=== PATIENT | female | born 2000 | race Caucasian/White ===

== ENCOUNTER 2023-06-30 21:40 | Inpatient (IN) ==
[2023-06-30 22:32] LABS: Appearance Urine Clear (Clear); Bacteria Urine Automated Negative (Negative); Bilirubin Urine Negative (Negative); Blood Urine Negative (Negative); Color Urine Yellow; Epithelial Cell Urine Auto >30 /lpf (0-5); Glucose Urine UA Negative (Negative); Ketones Urine Negative (Negative); Leukocyte Esterase Urine Trace (Negative); Nitrite Urine Negative (Negative); Protein Urine Negative (Negative); RBC Urine Automated 0-4 /hpf (0-4); Specific Gravity Urine 1.007 (1.000-1.030); Urobilinogen Urine Negative (Negative); pH Urine 6.5 (4.5-7.5)
[2023-06-30 22:39] LABS: Pregnancy Test, Serum Negative (Negative)
[2023-06-30 22:40] LABS: Acetaminophen < 3 ug/ml (10-30); Albumin Globulin Ratio 1.5 (0.9-2); Albumin Level 4.6 gm/dl (3.4-5.0); BUN Creatinine Ratio 11.1 (10-20); Bilirubin,Total 0.3 mg/dl (0.2-1.0); Calcium 9.1 mg/dl (8.6-10.3); Creatinine Clr Calc Pharmacy 116.7 ml/min; Est GFR (African American) 139.7 ml/min; Est GFR (Non-African American) 120.6 ml/min; Globulin 3.1 gm/dl (2.5-4.0); Potassium 3.5 mmol/L (3.5-5.1); Salicylate < 3.0 mg/dl (3.0-30); Total Protein 7.7 gm/dl (6.0-8.3)
[2023-06-30 22:44] LABS: Hematocrit (blood only) 39.2 % (37.0-47.0); Hemoglobin 13.4 g/dl (12.0-16.0); Mean Corpuscular Hgb Conc 34.2 g/dL (32.0-36.0); Mean Corpuscular Volume 87.9 fL (80.0-100.0); RDW Coefficient of Variation 13.2 % (11.5-14.5); RDW Standard Deviation 42.8 fL (36.4-46.3); Red Blood Count 4.46 M/uL (4.20-5.40); White Blood Count 7.08 K/ul (4.8-10.8)
[2023-06-30 22:50] LABS: Basophils # (auto) 0.03 K/uL (0.00-0.20); Basophils % (auto) 0.4 %; Eosinophils # (auto) 0.13 K/uL (0.00-0.50); Eosinophils % (auto) 1.8 %; Immature Granulocytes # (auto) 0.02 K/uL (0.01-0.20); Immature Granulocytes % (auto) 0.3 %; Lymphocytes # (auto) 2.49 K/uL (1.20-3.40); Lymphocytes % (auto) 35.2 %; Mean Platelet Volume 10.2 fL (9.4-12.4); Monocytes # (auto) 0.74 K/uL (0.11-0.59); Monocytes % (auto) 10.5 %; Neutrophils # (auto) 3.67 K/uL (1.40-6.50); Neutrophils % (auto) 51.8 %; Platelet Count 274 K/uL (130-400)
[2023-06-30 22:55] LABS: Amphetamines+Metham, Urine Neg (Neg); Barbiturates, Urine Neg (Neg); Benzodiazepine, Urine Neg (Neg); Cocaine, Urine Neg (Neg); MDMA (Ecstacy), Urine Neg (Neg); Marijuana, Urine Neg (Neg); Methadone, Urine Neg (Neg); Opiate, Urine Neg (Neg); Phencyclidine, Urine Neg (Neg)
[2023-06-30 22:58] LABS: Thyroid Stimulating Hormone 4.43 uIu/ml (0.300-4.500)
--- NOTE | 2023-06-30 23:12 | Emergency Department Note ---
History of Present Illness General Chief complaint: Mental Health Evaluation Time Seen by Provider: 06/30/23 21:52 Source: patient, family (Multiple family members who are at the bedside), RN notes reviewed and old records reviewed (A neurology clinic visit from 05-19-2021 where she was seen for headaches) Mode of arrival: ambulatory Limitations: no limitations History of Present Illness This patient is a 22-year-old female who comes in after having thoughts of hurting herself. She says that she has had bipolar and has had a issues for the last 2 years after a friend committed suicide. She said it is gotten worse today where she thought about hurting herself she was going to take one of her stepfather's guns. She locked herself in a door her sister had called for help. She did admit to drinking alcohol and had several drinks today. She also smoked 1 puff of marijuana denies that she tried to overdose on anything or took aspirin or Tylenol. She has been adjusting her medications over the last 2 years and has not found the right mix that she thinks. She is currently taking Seroquel fluoxetine and hydroxyzine. She has cut and burned herself in the past as attempts to hurt herself. Denies any physical complaints. No homicidal ideations. Home Medications Medication Instructions Recorded Confirmed Type albuterol sulfate 90 mcg/actuation 1 inh inhalation QID PRN sob 01/30/23 02/13/23 History aerosol inhaler fluoxetine 10 mg tablet 10 mg PO QAM 01/30/23 02/13/23 History lamotrigine 50 mg tablet,extended 50 mg PO QAM 01/30/23 02/13/23 History release 24 hr pantoprazole 20 mg tablet,delayed 20 mg PO QAM 01/30/23 02/13/23 History release L norgest/E estradiol-E estrad 1 tab PO DAILY #182 ea 03/05/23 Rx 0.15 mg-30 mcg (84)/10 mcg(7) tabs,3mos (Seasonique) sumatriptan succinate 50 mg tablet See Rx Instructions PO .COMPLEX #9 03/05/23 Rx tabs Allergies Allergy/AdvReac Type Severity Reaction Status Date / Time No Known Allergies Allergy Verified 02/13/23 08:35 Past Med/Surg History Medical History Bladder endometriosis Constipation dx with "extended colon" GERD (gastroesophageal reflux disease) History of anemia Bipolar disorder ADD (attention deficit disorder) PTSD (post-traumatic stress disorder) Migraine Anxiety and depression Asthma used rescue inhaler last sunday Surgical History H/O shoulder surgery rt History of tonsillectomy and adenoidectomy Family History Family/Other Colorectal cancer Ovarian cancer Grandfather (Maternal) Myocardial infarction Grandmother (Maternal) Myocardial infarction Family/Other Ovarian cancer Denies family history of Prostate cancer Breast cancer Social History Smoking Status: Never smoker Tobacco Type: E-cigarettes / Vaping Cigarettes Per Day: vaping daily>advised; Second Hand Exposure: Yes (mother smokes); Hx Alcohol Use: No Preferred Language: Amharic Humidifier Attendant Required: No Beliefs That Will Affect Care: None marital status: Single Current Living Situation: Family current occupational status: student Feels Safe at Home: Yes Gender Identity: Female Assistive Devices: Contacts and Glasses Review of Systems A total of 10 systems reviewed and were otherwise negative Physical Exam Vital Signs Vital Signs - 24 hr 06/30/23 21:40 06/30/23 23:45 Temperature 37.1 C Temperature Source Oral Pulse Rate 122 H Pulse Rate [Finger] 91 H Respiratory Rate 22 18 Blood Pressure 145/102 H Blood Pressure [Right Arm] 123/71 Blood Pressure Mean 116 Blood Pressure Mean [Right Arm] 88 Pulse Oximetry 97 99 Oxygen Delivery Method Room Air Room Air Sepsis Recent Fever Within 48 Hours No Sepsis New/Unexplained Change in Mental Status No Sepsis Action Taken by Nursing No Action Required General: Well developed well nourished young female who is teary-eyed but answers questions appropriately and otherwise appear in no acute distress, breathing comfortably on room air. Normal speech HEENT: Normal cephalic atraumatic. Pupils are equal round and reactive to light. Extraocular movements are intact. Oropharynx is pink with moist mucous membranes. No swelling of the mouth lips or tongue. Neck: Supple with a midline trachea. No meningeal signs or stiffness, no JVD or bruits. No Stridor. Chest: Clear to auscultation bilaterally. No wheezes or rhonchi. No increased work of breathing. Heart: Regular rate and rhythm without murmurs or gallops. Abdomen: Soft nontender, nondistended without rebound guarding or rigidity. Extremities: No cyanosis clubbing or edema. No calf tenderness or assymetry Spine/Back. Non tender to palpation. No CVA tenderness Skin: Good turgor without rashes. Neurologic exam: Cranial nerves two through 12 are intact. Motor and sensation are intact and symmetrical throughout. Psych: Teary-eyed and admits to having suicidal ideations. Medical Decision Making Differential Diagnosis Depression, anxiety, toxicologic or metabolic, suicidal ideations. Medical Records Attestation: I reviewed the patient's medical records. Home Medications Current Medication List: was personally reviewed by me Laboratory Data Attestation: I reviewed the patient's lab results. 06/30/23 22:06 06/30/23 22:06 Lab Results 06/30/23 06/30/23 Range/Units 22:06 22:08 WBC 7.08 (4.8-10.8) K/ul RBC 4.46 (4.20-5.40) M/uL Hgb 13.4 (12.0-16.0) g/dl Hct 39.2 (37.0-47.0) % MCV 87.9 (80.0-100.0) fL MCH 30.0 (25.0-34.0) pg MCHC 34.2 (32.0-36.0) g/dL RDW Std Deviation 42.8 (36.4-46.3) fL RDW Coeff of Lesli 13.2 (11.5-14.5) % Plt Count 274 (130-400) K/uL MPV 10.2 (9.4-12.4) fL Immature Gran % (Auto) 0.3 % Neut % (Auto) 51.8 % Lymph % (Auto) 35.2 % [place] % (Auto) 10.5 % Eos % (Auto) 1.8 % Baso % (Auto) 0.4 % Neut # (Auto) 3.67 (1.40-6.50) K/uL Lymph # (Auto) 2.49 (1.20-3.40) K/uL [place] # (Auto) 0.74 H (0.11-0.59) K/uL Eos # (Auto) 0.13 (0.00-0.50) K/uL Baso # (Auto) 0.03 (0.00-0.20) K/uL Immature Gran # (Auto) 0.02 (0.01-0.20) K/uL Sodium 140 (136-145) mmol/L Potassium 3.5 (3.5-5.1) mmol/L Chloride 108 H (98-107) mmol/L Carbon Dioxide 20 L (21-32) mmol/L Anion Gap 12 H (3-11) BUN 8 (6-23) mg/dl Creatinine 0.72 (0.6-1.2) mg/dl Est Cr Clr Drug Dosing 116.7 ml/min Est GFR ( Amer) 139.7 ml/min Est GFR (Non-Af Amer) 120.6 ml/min BUN/Creatinine Ratio 11.1 (10-20) Glucose 89 (70-99(Fasting)) mg/dl Calcium 9.1 (8.6-10.3) mg/dl Total Bilirubin 0.3 (0.2-1.0) mg/dl AST 29 (13-39) U/L ALT 33 (7-52) U/L Alkaline Phosphatase 46 (34-104) U/L Total Protein 7.7 (6.0-8.3) gm/dl Albumin 4.6 (3.4-5.0) gm/dl Globulin 3.1 (2.5-4.0) gm/dl Albumin/Globulin Ratio 1.5 (0.9-2) TSH 4.430 (0.300-4.500) uIu/ml HCG, Qual Negative (Negative) Urine Color Yellow Urine Appearance Clear (Clear) Urine pH 6.5 (4.5-7.5) Ur Specific [place] 1.007 (1.000-1.030) Urine Protein Negative (Negative) Urine Glucose (UA) Negative (Negative) Urine Ketones Negative (Negative) Urine Blood Negative (Negative) Urine Nitrite Negative (Negative) Urine Bilirubin Negative (Negative) Urine Urobilinogen Negative (Negative) Ur Leukocyte Esterase Trace H (Negative) Urine WBC (Auto) 5-10 H (0-5) /hpf Urine RBC (Auto) 0-4 (0-4) /hpf U Hyaline Cast (Auto) 1-5 (0-5) /lpf U Epithel Cells (Auto) >30 H (0-5) /lpf Urine Bacteria (Auto) Negative (Negative) Salicylates < 3.0 L (3.0-30) mg/dl Urine Opiates Screen Neg (Neg) Ur Methadone, Qual Neg (Neg) Acetaminophen < 3 L (10-30) ug/ml Urine Barbiturates Neg (Neg) Ur Phencyclidine (PCP) Neg (Neg) U Amphetamin/Meth Scrn Neg (Neg) MDMA (Ecstasy) Screen Neg (Neg) U Benzodiazepines Scrn Neg (Neg) Ur Cocaine Metabolite Neg (Neg) U Marijuana (THC) Screen Neg (Neg) Ethyl Alcohol mg/dL 187.0 H (<10.0) mg/dl MDM Narrative This patient comes in as scribed above she was placed in room B10. She has had thoughts of hurting herself she did drink alcohol today. She is here with multiple family members who agree that she does need to come in for mental health help she has never been inpatient before but does have a psychiatrist and they have been trying outpatient medications. Multiple blood testing was obtained for medical clearance as well as urinalysis. She is not . Her blood alcohol was elevated at 187 although she does not appear to be significantly intoxicated at this point. She has no significant electrolyte or metabolic or other toxicologic abnormalities which would explain her symptoms. She was further evaluate by psychiatric case preparer and liner and they are in the process of placing her. She is voluntary and the family is also very interested in her being admitted I think this is very appropriate and she is awaiting placement. She will be signed out to Dr. Mccall at shift change Impression & Plan Bipolar disorder, Suicidal ideations, Alcohol use, Marijuana use Discharge Plan Visit Data Chief Complaint: Mental Health Evaluation ED Provider: Gordon Francisco Discharge Problem: Bipolar disorder, Suicidal ideations, Alcohol use, Marijuana use Forms Stand Alone Forms: My [facility], Suicide Prevention Resources Prescriptions Prescriptions: No Action L norgest/e.estradiol-e.estrad [Seasonique] 0.15 mg-30 mcg (84)/10 mcg (7) tablets,dose pack,3 month 1 tab PO DAILY Qty: 182 1RF sumatriptan succinate 50 mg tablet See Rx Instructions PO .COMPLEX Qty: 9 2RF Rx Instructions: take 1 tab at onset of headache; if no relief may repeat 1 tab after at least 2 hrs; max = 4 tabs/24 hr PO fluoxetine 10 mg Tablet 10 mg PO QAM Rx Instructions: administer in the morning and at noon/midday pantoprazole 20 mg Tablet,Delayed Release (Dr/Ec) 20 mg PO QAM lamotrigine 50 mg Tablet Extended Release 24hr 50 mg PO QAM albuterol sulfate 90 mcg/actuation Hfa Aerosol Inhaler 1 inh INHALATION QID PRN (Reason: sob) Referrals Referrals: Matilda Da Silva DO [Primary Care Provider] -
--- NOTE | 2023-07-01 03:11 | Emergency Department Note ---
ED Visit Note I received this patient in signout at the change of shift from Dr. Francisco pending mental health bed search. The patient is currently a 201, complaining of suicidal ideation with a plan. She was drinking alcohol this evening and states she used a small amount of marijuana. patient was accepted to [facility] for inpatient psychiatric management on a 201. .
[2023-07-01] MEDS ORDERED: hydrOXYzine HCl 25 MG TAB PO PRN ×2 (04:16)
[2023-07-01] MEDS ORDERED: ACETAMINOPHEN 325 MG TAB PO PRN (04:16)
[2023-07-01] MEDS ORDERED: MAGNESIUM HYDROXIDE SUSP 30 ML UDC PO PRN (04:16)
[2023-07-01] MEDS ORDERED: BISMUTH SUBSALICYLATE LIQD 236 ML PO PRN (04:16)
[2023-07-01] MEDS ORDERED: SODIUM CHLORIDE 0.65% NA SOLN 45 ML (OCEAN) PRN (04:16)
[2023-07-01] MEDS ORDERED: ALUMINUM/MAGNESIUM SUSP 30 ML UDC PO PRN (04:16)
[2023-07-01] MEDS: NICOTINE 14 MG/24 HR PATCH TD SCH (10:39)
[2023-07-01] MEDS ORDERED: ALBUTEROL HFA 8 GM INHALER INH PRN (12:10)
[2023-07-01] MEDS ORDERED: SUMAtriptan succinate 50 MG TAB PO PRN (12:15)
[2023-07-01 14:14] LABS: Folate (Folic Acid),Ser orPlas 12.03 ng/ml (>5.38)
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
[2023-07-01] MEDS: NICOTINE POLACRILEX 2 MG GUM MT PRN (17:34)
[2023-07-02] MEDS: NICOTINE 14 MG/24 HR PATCH TD SCH (08:58)
[2023-07-02] MEDS: PANTOprazole 40 MG TAB PO SCH (08:59)
[2023-07-02] MEDS: FLUoxetine HCL 20 MG CAP PO SCH (08:59)
[2023-07-02] MEDS: lamoTRIgine 100 MG TAB PO SCH (08:59)
[2023-07-02] MEDS ORDERED: NALTREXONE HCL 50 MG TAB PO SCH (16:00)
[2023-07-02] MEDS ORDERED: ERGOCALCIFEROL 50,000 UNITS 1250 MCG CAP PO SCH (16:00)
[2023-07-02] MEDS: NALTREXONE HCL 50 MG TAB PO SCH (17:04)
[2023-07-02] MEDS: FOLIC ACID 1 MG TAB PO SCH (17:04)
--- NOTE | 2023-07-02 18:07 | Psychiatric Progress Note ---
Date of Service July 02, 2023 Impression / Recommendations Impression 22 y/o F with Bipoler I Disorder, currently depressed, PTSD, Alcohol Use Disorder with recent suicidal thoughts with high-lethality plan thwarted by inability to access locked firearms. She has been in outpatient treatment and has started what should be appropriate medications that are still being titrated. Her expectation that it would be appropriate to discharge her tomorrow indicates poor insight and judgment, but could also relate to desire not to go without alcohol. While she denies a history of withdrawal symptoms, she used significant amounts of alcohol for years and must be monitored for withdrawal. She is currently psychiatrically unstable and requires admission for safety, stabilization, medication adjustment. 07/02/2023: Pt continues to advocate for immediate discharge but has accepted that no automobile washer steam thinks that would be appropriate. She's more able to acknowledge the serious and concerning nature of her reported suicidal behavior but downplays the degree to which she was really trying to shoot herself (e.g., she knew the gun safe was locked and that she would not be able to access a firearm). Has tolerated medication dose adjustments (increases in both fluoxetine and lorazepam) with no evident adverse effect. Reviewed her moderate vitamin D deficiency and treatment options. Pt asked if she could start the naltrexone we'd discussed yesterday. Reviewed data suggesting significant improvement in response to fluoxetine when augmented with folic acid, as well as data suggesting reduced alcohol relapse in the 6 weeks following discharge in patients taking 1 mg folic acid. She would like to start folic acid. 07/01/2023: Reviewed medications in some detail. Told her I think fluoxetine is very appropriate for PTSD, though likely at a higher dose, but that bipolar depression typically doesn't respond to antidepressants. Told her I think lamotrigine is very appropriate for bipolar disorder, including depressive symptoms, though almost certainly at higher doses. Discussed MAT for alcohol, especially oral naltrexone, in which she expressed limited interest. Discussed prazosin for PTSD nightmares (which she reports) but she is not interested in a trial now. (1) Bipolar I disorder, most recent episode depressed, severe without psychotic features: (2) PTSD (post-traumatic stress disorder): (3) Alcohol use disorder, severe, dependence: Plan The patient was admitted to the [facility] ([facility]) on q15 minute checks (behavioral with suicide precautions) for safety.The patient will participate in group, recreational, and milieu therapies and will be offered additional individual and family sessions as clinically appropriate. 07/02/2023: * continue fluoxetine 40 mg daily - prior to admission medication, dose increased 07/01/2023 from 30 mg * increase lamotrigine to 100 mg daily - prior to admission medication, dose increased 07/01/2023 from 50 mg * start folic acid 1 mg daily * start ergocalciferol 50,000 IU once weekly * start naltrexone 50 mg daily 07/01/2023: * increase fluoxetine to 40 mg daily * increase lamotrigine to 100 mg daily * monitor for evidence of alcohol withdrawal symptoms Inventory Assets Strengths: supportive relationships, has local supports, voluntary, intelligent, employed, attending classes Needs: safety and stabilization, medication adjustment, additional coping skills Suicide Risk Level Suicide Risk Level: High-Moderate (q15 min suicide checks) (minimizes suicidality now, but had plan with high potential lethality thwarted only because firearms were locked. Insists she's safe here (and would be if discharged)) Risk Factors Assessment Male: No : Yes Do You Have Access To A Gun?: No (locked) Health Problems: Yes Mental Health Diagnoses: Yes Substance Use Disorders: Yes Previous Attempt: Yes Previous Psychiatric Hospitalization: No Hopelessness: No Protective Factors Assessment : No (engaged) Responsible for Young Children: No Employed: Yes ([employer]) Stable Relationships: Yes Supportive Family: Yes Interval History Identifying Information MICHAEL CACERES is a 22-year-old F who currently lives with family, has a history of bipolar I disorder, ptsd, and alcohol use disorder, and was admitted on 07/01/23 03:22 on a 201 voluntary commitment for suicidal thoughts with high- lethality plan. Chief Complaint "I'd really like to go". Review of Systems Sleep Information Total Hours of Sleep: 7.75 Sleep Comments: new admit at 0350 Meal Information Percent Meal Consumed - Breakfast: 100 Percent Meal Consumed - Lunch: 100 Percent Meal Consumed - Dinner: 100 Nutrition Comment: Pt ate her meal. Subjective Subjective The patient was seen and assessed and interval progress reviewed in a multidisciplinary team meeting with the treatment team. For details, see the "Impression" section. Overall I spent a total of 56 minutes for this inpatient follow-up including review of chart records, review of test results, direct evaluation of the patient [id number], counseling the patient, reconciling and ordering medication, medication education with the patient, risk assessment, discussion during interdisciplinary treatment rounds, and documentation in the electronic health record. Physical Exam Psychiatric Orientation: alert, oriented to person, oriented to place, oriented to time and cooperative (superficially and contingently) Apperance: appropriately dressed, appropriately groomed and appeared stated age Eye Contact: + fair eye contact Motor Behavior: no psychomotor agitation (fidgety) Speech: normal rate/rhythm/volume of speech Affect: + anxious affect and + constricted affect Mood: + anxious mood and + dysphoric mood Thought Process: linear/logical thought process Thought Content: reality based without delusions Suicidal Thoughts: denies suicidal thoughts, denies suicidal plan and denies suicidal intent Homicidal Thoughts: denies homicidal thoughts Hallucinations: no auditory hallucinations and no visual hallucinations Cognition: recent memory grossly intact, remote memory grossly intact, attention grossly intact and language grossly intact Estimated Intelligence: consistent with education level Insight: + fair insight Judgment: + fair judgement Vital Signs (Past 24 Hours) Last Vital Signs Temp 36.9 C 07/02/23 06:38 Pulse 106 H 07/02/23 06:39 Resp 16 07/02/23 06:38 BP 122/78 07/02/23 06:39 Pulse Ox 98 07/01/23 04:20 O2 Del Method Room Air 07/01/23 04:20 Results & Data ([facility]) Current Inpatient Medications Current Inpatient Medications: Current Inpatient Medications Acetaminophen (Acetaminophen 325 Mg Tab) 650 mg PO Q4H PRN PRN Reason: Headache or Minor Fever Stop: 07/31/23 04:15 Al Hydrox/Mg Hydrox/Simethicone (Aluminum/Magnesium Susp 30 Ml Udc) 30 ml PO Q4H PRN PRN Reason: GI Upset Stop: 07/31/23 04:15 Albuterol (Albuterol Hfa 8 Gm Inhaler) 1 puffs INH QIDR PRN PRN Reason: Shortness Of Breath Stop: 07/31/23 12:09 Bismuth Subsalicylate (Bismuth Subsalicylate Liqd 236 Ml) 15 ml PO PRN PRN PRN Reason: Loose Stool Stop: 07/31/23 04:15 Ergocalciferol (Ergocalciferol 50,000 Units 1250 Mcg Cap) 50,000 units PO MoTh@0900 [facility] Stop: 08/01/23 15:59 Last Admin: 07/02/23 17:04 Dose: 50,000 units Fluoxetine HCl (Fluoxetine Hcl 20 Mg Cap) 40 mg PO QAM [facility] Stop: 08/01/23 08:59 Last Admin: 07/02/23 08:59 Dose: 40 mg Folic Acid (Folic Acid 1 Mg Tab) 1 mg PO QAM [facility] Stop: 08/01/23 16:29 Last Admin: 07/02/23 17:04 Dose: 1 mg Hydroxyzine HCl (Hydroxyzine Hcl 25 Mg Tab) 50 mg PO HSZ PRN PRN Reason: Insomnia Stop: 07/31/23 04:15 Last Admin: 07/01/23 21:14 Dose: 50 mg Hydroxyzine HCl (Hydroxyzine Hcl 25 Mg Tab) 25 mg PO Q4H PRN PRN Reason: Anxiety Stop: 07/31/23 04:15 Lamotrigine (Lamotrigine 100 Mg Tab) 100 mg PO QAM [facility] Stop: 08/01/23 08:59 Last Admin: 07/02/23 08:59 Dose: 100 mg Magnesium Hydroxide (Magnesium Hydroxide Susp 30 Ml Udc) 30 ml PO DAILY PRN PRN Reason: Constipation Stop: 07/31/23 04:15 Miscellaneous (Remove Nicoderm Patch) 1 each N/A DAILY@0859 [facility] Stop: 07/31/23 08:58 Last Admin: 07/02/23 08:59 Dose: 1 each Miscellaneous (Seasonique--Order Awaiting Action) 1 each N/A DAILY [facility] Stop: 08/01/23 08:59 Last Admin: 07/02/23 09:00 Dose: Not Given Naltrexone HCl (Naltrexone Hcl 50 Mg Tab) 50 mg PO DAILY [facility] Stop: 08/01/23 16:14 Last Admin: 07/02/23 17:04 Dose: 50 mg Nicotine (Nicotine 14 Mg/24 Hr Patch) 14 mg TD QAM [facility] Stop: 07/31/23 08:59 Last Admin: 07/02/23 08:58 Dose: 14 mg Nicotine Polacrilex (Nicotine Polacrilex 2 Mg Gum) 1 piece MT PRN PRN PRN Reason: Nicotine Withdrawal Symptoms Stop: 07/31/23 04:15 Last Admin: 07/01/23 17:34 Dose: 1 piece Pantoprazole Sodium (Pantoprazole 40 Mg Tab) 40 mg PO QAM [facility] Stop: 08/01/23 08:59 Last Admin: 07/02/23 08:59 Dose: 40 mg Sodium Chloride (Sodium Chloride 0.65% Na Soln 45 Ml ([place])) 1 - 2 sprays NA PRN PRN PRN Reason: Nasal Dryness/Congestion Stop: 07/31/23 04:15 Sumatriptan Succinate (Sumatriptan Succinate 50 Mg Tab) 50 mg PO UD PRN PRN Reason: headache Stop: 07/31/23 12:14 Mental Health & Subst Abuse Tx Psychiatrist Name of Psychiatrist: Jose Cardona Psychiatrist's Psychiatric Appointment Comment: [address] [place] [address] Therapist Name of Therapist: [facility] The[facility]ist's Date of Therapist Appointment: 07/05/23 Time of Therapist Appointment: 2 PM Therapy Appointment Comment: [address], [place] [address] Airport Screener Name of Airport Screener: None Post Discharge Appointments Primary Care Physician Name Of Family Doctor/PCP: [facility] Time of Appointment with PCP: [place] [address] Provider Appointment Comment: Please follow up with your PCP as needed. Contact Information Discharge Discharge Address: [address] [place] [address]
[2023-07-02] MEDS: NICOTINE POLACRILEX 2 MG GUM MT PRN (19:43)
[2023-07-03] MEDS ORDERED: SEASONIQUE PO SCH (09:00)
[2023-07-03] MEDS ORDERED: [UNRECOGNIZED DRUG - OTHER] PO SCH (09:00)
[2023-07-03] MEDS: PANTOprazole 40 MG TAB PO SCH (09:07)
[2023-07-03] MEDS: FLUoxetine HCL 20 MG CAP PO SCH (09:07)
[2023-07-03] MEDS: FOLIC ACID 1 MG TAB PO SCH (09:07)
[2023-07-03] MEDS: NALTREXONE HCL 50 MG TAB PO SCH (09:07)
[2023-07-03] MEDS: lamoTRIgine 100 MG TAB PO SCH (09:07)
[2023-07-03] MEDS: NICOTINE 14 MG/24 HR PATCH TD SCH (09:12)
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
== END 2023-07-03 13:30 | disposition home or self-care (01) | DRG 885 ==
LOC: ED 21:40 → 3S 07-01 03:22